=== PATIENT | female | born 1990 | race Caucasian/White ===

== ENCOUNTER 2017-02-10 05:32 | Inpatient (IN) ==
[2017-02-10] MEDS ORDERED: KEFZOL 1 GM/D5W 1 GM/50 ML IVPB IV PRN (05:37)
[2017-02-10] MEDS ORDERED: BENADRYL ONE (06:24)
[2017-02-10] MEDS ORDERED: TORADOL ONE (06:24)
[2017-02-10] MEDS ORDERED: DURAMORPH ONE (06:25)
[2017-02-10] MEDS: LR 1,000 ML IV SCH ×2 (06:25→07:11)
[2017-02-10] MEDS ORDERED: PITOCIN ONE ×2 (06:25→09:10)
[2017-02-10] MEDS ORDERED: ZOFRAN ONE (06:25)
[2017-02-10] MEDS ORDERED: FENTANYL ONE (06:25)
[2017-02-10 06:45] LABS: MANUAL DIFF NEEDED? NO; URINE SOURCE VOIDED
[2017-02-10 06:55] LABS: BILIRUBIN URINE NEGATIVE (NEGATIVE); BLOOD URINE NEGATIVE (NEGATIVE); CLARITY SL. CLOUDY (CLEAR); COLOR YELLOW; GLUCOSE URINE NEGATIVE (NEGATIVE); HEMATOCRIT 34.2 % (37.0-47.0); HEMOGLOBIN 11.9 g/dL (12.0-16.0); LEUKOCYTES URINE 1+ (NEGATIVE); MCV 86.6 FL (81-99); NITRITE URINE NEGATIVE (NEGATIVE); PH URINE 6.5; PROTEIN URINE 1+(30 mg/dL) mg/dL (NEGATIVE); RBC 3.95 XMIL (4.2-5.4); UROBILINOGEN URINE 4+(12 mg/dL)
[2017-02-10] MEDS ORDERED: BICITRA ONE (06:55)
[2017-02-10 06:56] LABS: BASO% 0.2 % (0.0-0.8); EOS% 1.8 % (0.0-10.0); IMM GRAN% 0.3 % (0.0-0.5); LYMPH# 1.91 X1000 (1.2-3.4); LYMPH% 17.1 % (20.5-51.1); MCH 30.1 PG (27-31); MCHC 34.8 g/dL (33-37); MONO# 0.79 X1000 (0.11-0.59); MONO% 7.1 % (1.7-9.3); MPV 12.2 FL (7.4-10.4); NEUT% 73.5 % (42.2-75.2); PLT 184 X1000 (130-400)
[2017-02-10 06:57] LABS: IMM GRAN# 0.03 X1000 (0.0-0.04)
[2017-02-10] MEDS ORDERED: BICITRA PO ONE (07:30)
[2017-02-10] MEDS ORDERED: PEPCID PO ONE (07:30)
[2017-02-10] MEDS ORDERED: PEPCID IV ONE (07:45)
[2017-02-10] MEDS ORDERED: PITOCIN 20 UNITS/LR 20 UNITS/1,000 ML IV.SOLN ONE ×2 (08:00→15:19)
[2017-02-10] MEDS ORDERED: DEMEROL PO PRN ×2 (08:08)
[2017-02-10] MEDS ORDERED: AMBIEN PO PRN (08:08)
[2017-02-10] MEDS ORDERED: CYTOTEC PO PRN (08:08)
[2017-02-10] MEDS ORDERED: MYLICON PO PRN (08:08)
[2017-02-10] MEDS ORDERED: HYDROXYZINE IM PRN (08:08)
[2017-02-10] MEDS ORDERED: PITOCIN 20 UNITS/LR 20 UNITS/1,000 ML IV.SOLN IV ONE (08:08)
[2017-02-10] MEDS ORDERED: PHENERGAN IM PRN (08:08)
[2017-02-10] MEDS ORDERED: BOOSTRIX VACCINE IM ONE (08:08)
[2017-02-10] MEDS ORDERED: DULCOLAX PR PRN (08:08)
[2017-02-10] MEDS ORDERED: HYDROXYZINE PO PRN (08:08)
[2017-02-10] MEDS ORDERED: DEMEROL IM PRN (08:08)
[2017-02-10] MEDS ORDERED: M-M-R II VACCINE SUBQ ONE (08:08)
[2017-02-10] MEDS ORDERED: PITOCIN IM PRN (08:08)
[2017-02-10] MEDS ORDERED: BENADRYL IV PRN (09:02)
[2017-02-10] MEDS ORDERED: ZOFRAN ODT PO PRN (09:02)
[2017-02-10] MEDS ORDERED: NARCAN INJ PRN (09:02)
[2017-02-10] MEDS ORDERED: ZOFRAN IV PRN ×2 (09:02)
[2017-02-10] MEDS ORDERED: NORCO-5 PO PRN (09:03)
--- NOTE | 2017-02-10 09:08 | OPERATIVE NOTE ---
PROCEDURE DATE : 02/10/2017 PREOPERATIVE DIAGNOSES: 1. Term intrauterine , previous section x2. 2. Gestational diabetes. 3. Chronic hypertension. POSTOPERATIVE DIAGNOSES: 1. Term intrauterine , previous section x2. 2. Gestational diabetes. 3. Chronic hypertension. PROCEDURE PERFORMED: Repeat low transverse section. ANESTHESIA: Spinal by Dr. Vela FINDINGS: The patient had a male born weighing 5 pounds 6 ounces. Apgars were 9 and 10. DESCRIPTION OF PROCEDURE: The patient was taken to the operating room and given spinal anesthesia. She was given Ancef IV and prepped and draped in a sterile fashion. Pump hose and stockings were placed along with a Root catheter. We made a Pfannenstiel skin incision and sharply dissected down to the fascia. The fascia was dissected off the rectus muscle. Peritoneum was entered into and dissected down and created the bladder flap. Low transverse incision was made. The paperboard machine operator's hand was introduced. The infant was delivered using fundal pressure. Cord blood was obtained. Placenta was removed. Uterus was cleaned with a clean lap. Incision was closed with #1 chromic in interlocking fashion, single layer closure. Good hemostasis was noted throughout. The uterus was placed back in its anatomic position, and irrigation is done. The rectus muscles were closed with 0 chromic suture. Hemostasis was maintained with the Bovie. The fascia was closed with #1 Vicryl. The skin was closed with 4-0 Biosyn. ESTIMATED BLOOD LOSS: 400 mL. She was taken to the recovery room awake and in satisfactory condition. cc: Guy Johnson MD
[2017-02-10] MEDS: MYLICON PO SCH ×4 (09:32→20:23)
[2017-02-10] MEDS: TRANDATE PO SCH ×2 (10:01→20:23)
[2017-02-10] MEDS: TORADOL IV SCH ×2 (14:53→20:23)
[2017-02-10] MEDS: PERICOLACE PO SCH (20:23)
[2017-02-10] MEDS: PITOCIN 10 UNITS/LR 10 UNIT/1,000 ML IV.SOLN IV SCH (22:45)
[2017-02-11] MEDS: NORCO-10 PO PRN ×3 (05:09→18:45)
[2017-02-11 06:02] LABS: HEMATOCRIT 28.7 % (37.0-47.0); HEMOGLOBIN 9.6 g/dL (12.0-16.0); MCH 29.3 PG (27-31); MCHC 33.4 g/dL (33-37); MCV 87.5 FL (81-99); MPV 12.2 FL (7.4-10.4); RBC 3.28 XMIL (4.2-5.4)
[2017-02-11] MEDS: PITOCIN 10 UNITS/LR 10 UNIT/1,000 ML IV.SOLN IV SCH (06:31)
[2017-02-11] MEDS ORDERED: LR 1,000 ML IV SCH (08:08)
[2017-02-11] MEDS: MYLICON PO SCH ×4 (08:59→20:52)
[2017-02-11] MEDS: TRANDATE PO SCH ×2 (09:00→20:53)
--- NOTE | 2017-02-11 11:10 | HISTORY AND PHYSICAL ---
HISTORY OF PRESENT ILLNESS: The patient is a 26-year-old female, 3, para 2-0-0-2, who is admitted at this time for repeat section for delivery. She has had routine care without any complications. She is 39 weeks at this time and admitted at this time for repeat section for delivery. She does not want tubal ligation. She has had gestational diabetes during this , but her blood sugars have remained under good control. She has had some issues with hypertension in the past. Blood pressures have been slightly elevated towards the last part of her . PAST MEDICAL HISTORY: section x2 and hypertension. MEDICATIONS: vitamins. ALLERGIES: Sulfa. PHYSICAL EXAMINATION: GENERAL: Well-developed female. HEENT: Benign. NECK: Supple. LUNGS: Clear. CARDIOVASCULAR: Regular rate and rhythm. ABDOMEN: Soft, nontender. EXTREMITIES: No cyanosis, clubbing or edema. ASSESSMENT AND PLAN: This is a 26 year old in for repeat section for delivery. She understands the risks of surgery. All questions were answered. cc: Guy Johnson MD
[2017-02-11] MEDS: MOTRIN PO PRN (12:39)
[2017-02-11] MEDS ORDERED: PNEUMOVAX 23 IM ONE (17:00)
[2017-02-11] MEDS: PERICOLACE PO SCH (20:52)
[2017-02-12] MEDS: NORCO-10 PO PRN (01:35)
[2017-02-12] MEDS: PERCOCET-10 PO PRN ×3 (04:39→17:39)
[2017-02-12] MEDS: MOTRIN PO PRN ×2 (04:39→17:48)
[2017-02-12] MEDS ORDERED: TRANDATE PO ONE ×2 (04:59)
[2017-02-12] MEDS: HYDROCHLOROTHIAZIDE PO SCH ×2 (08:54→16:32)
[2017-02-12] MEDS: MYLICON PO SCH ×4 (08:54→21:02)
[2017-02-12] MEDS: TRANDATE PO SCH ×3 (08:54→21:02)
[2017-02-12 17:27] LABS: URINE SOURCE VOIDED
[2017-02-12 17:44] LABS: BILIRUBIN URINE NEGATIVE (NEGATIVE); BLOOD URINE 3+ (NEGATIVE); CLARITY CLEAR (CLEAR); COLOR YELLOW; GLUCOSE URINE NEGATIVE (NEGATIVE); LEUKOCYTES URINE NEGATIVE (NEGATIVE); NITRITE URINE NEGATIVE (NEGATIVE); PROTEIN URINE NEGATIVE (NEGATIVE); URINE MICROSCOPIC NEEDED? YES; UROBILINOGEN URINE NORMAL
[2017-02-12 17:58] LABS: UR AMPHETAMINES QUAL NONE DETECTED (NONE DETECT); UR BARBITUATES QUAL NONE DETECTED (NONE DETECT); UR BENZODIAZEPIN QUAL NONE DETECTED (NONE DETECT); UR CANNABINOIDS QUAL NONE DETECTED (NONE DETECT); UR COCAINE QUAL NONE DETECTED (NONE DETECT); UR MDMA QUAL NONE DETECTED (NONE DETECT); UR METHADONE QUAL NONE DETECTED (NONE DETECT); UR METHAMPHETAMINE QUAL NONE DETECTED (NONE DETECT); UR OPIATES QUAL NONE DETECTED (NONE DETECT); UR OXYCODONE QUAL PRESUMPTIVE POSITIVE (NONE DETECT); UR PCP QUAL NONE DETECTED (NONE DETECT); UR TCA QUAL NONE DETECTED (NONE DETECT)
[2017-02-12 18:03] LABS: URINE CAST NONE SEEN /LPF; URINE CRYSTAL NONE SEEN /HPF; URINE EPITHELIAL CELLS >10 /HPF (<10); URINE RBC <10 /HPF (<10)
[2017-02-12] MEDS ORDERED: ADALAT CC PO ONE ×2 (18:59→21:00)
[2017-02-12] MEDS: PERICOLACE PO SCH (21:01)
[2017-02-13] MEDS: NORCO-10 PO PRN (02:06)
[2017-02-13] MEDS: TRANDATE PO SCH (05:34)
[2017-02-13] MEDS: PERCOCET-5 PO PRN ×2 (05:35→08:44)
[2017-02-13] MEDS: MYLICON PO SCH (08:44)
[2017-02-13] MEDS: HYDROCHLOROTHIAZIDE PO SCH (08:44)
[2017-02-13 11:10] VITALS: BP 141/90
--- NOTE | 2017-02-14 09:33 | DISCHARGE SUMMARY ---
ADMISSION DATE: 02/10/2017 DISCHARGE DATE: 02/13/2017 ADMITTING DIAGNOSES: 1. Thirty-eight weeks. 2. Chronic hypertension. 3. Previous delivery. DISCHARGE DIAGNOSES: 1. Thirty-eight weeks. 2. Chronic hypertension. 3. Previous delivery. 4. Status post repeat low transverse section. CONDITION: Stable. DIET: As tolerated. ACTIVITY: Routine postoperative and instructions. She is to follow up in 1-[address] Johnson. DISCHARGE MEDICATIONS: 1. She is to take [place] 10. 2. Motrin 800. 3. vitamins. 4. She is continue her labetalol and stool softeners. HOSPITAL COURSE: Please refer to Ms. Jean Baptiste' records, H and P, and operative note. She was delivered at 38 weeks via repeat delivery for worsening hypertension. She has done well afterwards. Currently, her blood pressure is fairly well-controlled on labetalol 300 t.i.d. She is without complaints. She is ambulating, voiding, tolerating p.o. PHYSICAL EXAMINATION: Vital signs: Stable. She is afebrile. General: She is alert and cooperative. No distress. Neck: Supple. Lungs: Clear. Heart: Regular sinus rhythm. Abdomen: Slightly distended. Incision is dry and intact. Extremities: No cyanosis, clubbing, edema in her extremities. DISCHARGE DISPOSITION: We will discharge with above instructions. cc: MD Guy Chaudhary MD
== END 2017-02-13 12:10 | disposition home or self-care (01) ==
LOC: P.LD 05:32 → P.WC 16:11
PROVIDERS: ADMIT Obstetrics & Gynecology; ATTEND Obstetrics & Gynecology